=== PATIENT | female | born 1955 | race American Indian/Alaskan Native ===

== ENCOUNTER 2017-04-03 10:44 | Outpatient (CLI) | payer OTHER ==
--- NOTE | 2017-04-03 16:58 | Vascular Lab Report ---
LOWER EXTREMITY ARTERIAL DUPLEX: REASON FOR EXAM: Peripheral arterial disease. COMMENTS ON THE RIGHT: Triphasic waveforms are seen proximally. Monophasic waveforms are seen distally. No significant velocity gradients are identified. Scatter plaque identified throughout the extremity. Findings are consistent with abnormal perfusion. Findings are inconclusive with the ability to heal distal wounds. COMMENTS ON THE LEFT: Triphasic waveforms are seen proximally. Monophasic waveforms are seen distally. Significant elevation in velocity is noted at mid SFA.. Diffuse plaque noted throughout the vessel.. Findings are consistent with abnormal perfusion. Findings are inconsistent with the ability to heal distal wounds. IMPRESSION: RIGHT: Essentially normal arterial flow. LEFT:Mid SFA stenosis.
--- NOTE | 2017-04-03 17:01 | Vascular Lab Report ---
LOWER EXTREMITY ARTERIAL PHYSIOLOGIC STUDY: REASON FOR EXAM: Peripheral arterial disease. COMMENTS ON THE RIGHT: Ankle brachial index is 0.37. This value is abnormal. Toe brachial index is not obtained due to absence of the toe. Pulse volume recording at the level of the ankle is abnormal. Exercise testing was not done. COMMENTS ON THE LEFT: Ankle brachial index is 0.52. This value is abnormal. Toe brachial index is 0.3. This value is abnormal. Wound healing is unlikely. Pulse volume recording at the level of the ankle is abnormal. Exercise testing was not done. IMPRESSION: RIGHT: Severe hemodynamically significant arterial disease LEFT:Moderate to severe hemodynamically significant disease
== END 2017-04-03 10:45 | disposition home or self-care (01) ==
LOC: VAS 10:44
PROVIDERS: ATTEND Surgery Vascular Surgery
DX: I70.223 Atherosclerosis of native arteries of extremities with rest pain, bilateral legs (principal); I70.8 Atherosclerosis of other arteries; E11.9 Type 2 diabetes mellitus without complications; I10 Essential (primary) hypertension; J44.9 Chronic obstructive pulmonary disease, unspecified
CPT/HCPCS: 93922; 93925

== ENCOUNTER 2017-04-28 09:55 | Day surgery (SDC) | payer OTHER ==
[2017-04-28 11:00] LABS: Basophils % (Auto) 0.6 % (0.0-1.8); Eosinophils % (Auto) 1.7 % (0.0-4.3); Hematocrit 39.7 % (30.3-42.9); Mean Corpuscular HGB Conc 33 % (30-34); Mean Corpuscular Hemoglobin 29 pg (28-32); Mean Corpuscular Volume 88 fl (79-97); Platelet Count 299 K/mm3 (140-440); Red Blood Count 4.51 M/mm3 (3.65-5.03); White Blood Count 6.5 K/mm3 (4.5-11.0)
[2017-04-28] MEDS ORDERED: NACL 0.9% 500 ML 500 ML IV SCH (11:00)
[2017-04-28 11:12] LABS: INR 1.08 (0.87-1.13)
[2017-04-28 11:40] LABS: Anion Gap 18 mmol/L; Blood Urea Nitrogen 14 mg/dL (7-17); Calcium 8.8 mg/dL (8.4-10.2); Carbon Dioxide 24 mmol/L (22-30); Chloride 103.8 mmol/L (98-107); Glucose 159 mg/dL (65-100); Sodium 142 mmol/L (137-145)
[2017-04-28] MEDS: VERSED ONE ×2 (12:53→13:43)
[2017-04-28] MEDS: SUBLIMAZE ONE ×2 (12:53→13:43)
[2017-04-28] MEDS ORDERED: HEPARIN/NS 5000 UNIT/500ML(CATH LAB) 1,000 ML IR ONE (12:57)
[2017-04-28] MEDS ORDERED: HEPARIN 10,000 UNITS/10 ML ONE (12:57)
[2017-04-28] MEDS ORDERED: XYLOCAINE 2% INFILTRATI ONE (12:58)
[2017-04-28] MEDS ORDERED: ANCEF/STERILE WATER 2 GM/20 ML 0 GM/0 ML SYRINGE IV ONE (12:58)
[2017-04-28 15:58] VITALS: BP 147/73
--- NOTE | 2017-04-28 20:59 | Procedure Note ---
Date of procedure: 04/28/17 Pre-op diagnosis: Nonhealing right toe ulcer Post-op diagnosis: same Procedure: 1. Ultrasound-guided access of Left Common Femoral Artery 2. Abdominal Aortogram 3. Right Lower Extremity Runoff 4. Right superficial femoral and popliteal balloon angioplasty with 4 mm x 100 mm Lutonix drug-coated balloon Findings: Near complete occlusions of SFA proximally with severe diffusely diseased sfa and popliteal; popliteal completely occluded behind knee with posterior tibial and peroneal runoff Procedure Details The risks, benefits, complications, treatment options, and expected outcomes were discussed with the patient. The patient and/or family concurred with the proposed plan, giving informed consent. Patient was brought to the recyclable materials collector after IV hydration was begun and oral premedication was given. The patient was further sedated with Fentanyl and Versed and then prepped and draped in the usual manner. Under ultrasound guidance and using the modified Seldinger access technique, I gained access to the common femoral artery and this was eventually upsized to a 6 Sami sheath. Omniflush Catheter was placed in the abdominal aorta over wire and an aortogram was performed. Runoff pictures were obtained by selecting the contralateral iliac system with Bentson wire and Omniflush catheter. This showed the above. I placed a otero wire down the lower extremity and placed a 6F Destination sheath over the bifurcation then gave the patient 5000 U IV heparin. I then crossed the lesion with glidewire and glidecatheter and confirmed I was intraluminal with an angiogram. I then treated the lesion with a 4 mm drug-coated balloon at nominal pressure for 3 minutes for the first inflation, and 1 minute for the second, more distal, inflation. Because of the length of disease I used a second DCB and the first inflation was at the proximal popliteal/distal SFA which would serve as the inflow for a bypass. This was a 3 minute insufflation followed by 1 minute in the midportion of the sfa. Repeat angiogram showed a good result and no embolization. I did a sheath angiogram of the contralateral side which confirmed a good access location and I was able to place proglide closures x 1 with no bleeding afterwards. The patient tolerated the procedure well and there were no complications. Anesthesia: MAC Surgeon: TIFF MEJIA Estimated blood loss: minimal Pathology: none Condition: stable Disposition: same day
--- NOTE | 2017-04-30 07:43 | Vascular Lab Report ---
MISCELLANEOUS VESSEL IDENTIFICATION: COMMENTS ON THE SCAN: The left common femoral artery was identified and under real-time ultrasound guidance was cannulated. IMPRESSION: Successful ultrasound guided arterial cannulation.
== END 2017-04-28 16:30 | disposition home or self-care (01) ==
LOC: CATHLABREC 09:55
PROVIDERS: ATTEND Surgery Vascular Surgery
DX: I70.221 Atherosclerosis of native arteries of extremities with rest pain, right leg (principal); I87.2 Venous insufficiency (chronic) (peripheral); E11.9 Type 2 diabetes mellitus without complications; Z82.49 Family history of ischemic heart disease and other diseases of the circulatory system; Z83.3 Family history of diabetes mellitus
CPT/HCPCS: 36415; 37224; 75625; 75710; 76937; 80048; 82962; 85025; 85610; C1760; C1769; C1887; C1894; C2623; J1644; J2250; J3010; J7040; J0690; Q9967

== ENCOUNTER 2017-11-22 15:02 | Inpatient (IN) | payer OTHER ==
[2017-11-22] MEDS ORDERED: ASPIRIN PO ONE (15:12)
[2017-11-22 15:40] LABS: Basophils # (Auto) 0.1 K/mm3 (0.0-0.1); Basophils % (Auto) 0.7 % (0.0-1.8); Eosinophils % (Auto) 0.2 % (0.0-4.3); Hematocrit 36.3 % (30.3-42.9); Hemoglobin 12.3 gm/dl (10.1-14.3); Mean Corpuscular HGB Conc 34 % (30-34); Mean Corpuscular Hemoglobin 29 pg (28-32); Mean Corpuscular Volume 85 fl (79-97); Monocytes # (Auto) 0.8 K/mm3 (0.0-0.8); Monocytes % (Auto) 7.7 % (0.0-7.3); Platelet Count 372 K/mm3 (140-440); Red Blood Count 4.27 M/mm3 (3.65-5.03); Red Cell Distribution Width 13.5 % (13.2-15.2)
[2017-11-22 15:49] LABS: INR 1.01 (0.87-1.13); Partial Thromboplastin Time 25.6 Sec. (24.2-36.6)
[2017-11-22 15:59] LABS: BUN/Creatinine Ratio 11; Blood Urea Nitrogen 9 mg/dL (7-17); Calcium 9.2 mg/dL (8.4-10.2); Hemolysis Index 0
--- NOTE | 2017-11-22 16:59 | Emergency Department Report ---
HPI - General Chief Complaint: Extremity Problem,Nontraumatic Time Seen by Provider: 11/22/17 16:48 - HPI HPI: Room 4 The patient is a 62-year-old female presenting with chief complaint of bilateral lower extremity edema. The patient states for the past 4 days she has noticed swelling and tightness in both of her legs. Patient denies any preceding trauma. Patient denies chest pain or shortness of breath. Patient denies any recent flights or long car trips. The patient states she was placed on Plavix last year after her right great toe was amputated Location: Bilateral lower extremities Duration: 4 days Quality: Tightness Severity: Moderate Modifying factors: [see above] Context: [see above] Mode of transportation: [not driving] ED Past Medical Hx - Past Medical History Hx Hypertension: Yes (noncompliant with meds) Hx Diabetes: Yes Additional medical history: Left lower extremity DVT - Surgical History Past Surgical History?: Yes Additional Surgical History: Right great toe amputation - Family History Family history: no significant - Social History Smoking Status: Never Smoker Substance Use Type: None - Medications Home Medications: Home Medications Medication Instructions Recorded Confirmed Last Taken Type Clopidogrel [Plavix] 75 mg PO QDAY #30 tablet 11/27/16 04/28/17 04/28/17 09:00 Rx Losartan [Cozaar] 50 mg PO DAILY #30 tablet 11/27/16 04/28/17 04/28/17 09:00 Rx amLODIPine [Norvasc] 5 mg PO DAILY #30 tablet 11/27/16 04/28/17 04/28/17 09:00 Rx NovoLOG Mix 70/30 VIAL 5 units SC BID 04/28/17 04/28/17 04/28/17 History ED Review of Systems ROS: Stated complaint: LEG SWELLING Other details as noted in HPI Respiratory: denies: shortness of breath Cardiovascular: denies: chest pain Hematological/Lymphatic: other (bilateral lower extremity edema) Physical Exam - Physical Exam Vital Signs: Vital Signs 11/22/17 15:08 Temperature 98.6 F Pulse Rate 126 H Respiratory 16 Rate Blood Pressure 144/77 O2 Sat by Pulse 95 Oximetry Physical Exam: GENERAL: The patient is well-developed well-nourished female lying on stretcher not appearing to be in acute distress. [] HEENT: Normocephalic. Atraumatic. Extraocular motions are intact. Patient has moist mucous membranes. NECK: Supple. Trachea midline CHEST/LUNGS: Clear to auscultation. There is no respiratory distress noted. HEART/CARDIOVASCULAR: Regular. There is no tachycardia. There is no gallop rub or murmur. ABDOMEN: Abdomen is soft, nontender. Patient has normal bowel sounds. Obese. SKIN: There is no rash. There is 1+ bilateral lower extremity pitting edema. There is no diaphoresis. NEURO: The patient is awake, alert, and oriented. The patient is cooperative. The patient has normal speech MUSCULOSKELETAL: There is no evidence of acute injury. ED Course Vital Signs 11/22/17 15:08 Temperature 98.6 F Pulse Rate 126 H Respiratory 16 Rate Blood Pressure 144/77 O2 Sat by Pulse 95 Oximetry ED Medical Decision Making - Lab Data Result diagrams: 11/22/17 15:18 11/22/17 15:18 Laboratory Results - last 72 hr 11/22/17 11/22/17 11/22/17 15:18 15:18 15:18 WBC 9.9 RBC 4.27 Hgb 12.3 Hct 36.3 MCV 85 MCH 29 MCHC 34 RDW 13.5 Plt Count 372 Lymph % (Auto) 20.0 [place] % (Auto) 7.7 H Eos % (Auto) 0.2 Baso % (Auto) 0.7 Lymph # 2.0 [place] # 0.8 Eos # 0.0 Baso # 0.1 Seg Neutrophils % 71.4 H Seg Neutrophils # 7.0 PT 13.8 INR 1.01 APTT 25.6 D-Dimer 6679.02 H Sodium 130 L Potassium 3.4 L Chloride 95.4 L Carbon Dioxide 21 L Anion Gap 17 BUN 9 Creatinine 0.8 Estimated GFR > 60 BUN/Creatinine Ratio 11 Glucose 167 H Calcium 9.2 Troponin T < 0.010 - Radiology Data Radiology results: report reviewed (bilateral lower extremity Doppler), image reviewed (bilateral lower extremity Doppler) Bilateral lower extremity Doppler [facility] 1955 [facility]# [id number] 11/22/17 16:38 - Radiology Dept. Note by BRANDON URIOSTEGUI Acct Num: [id number] : 1955 Patient Age: 62 VASCULAR LAB.PRELIMINARY REPORT. BLE VENOUS DUPLEX DONE.TECHNICALLY DIFFICULT/ LIMITED DUE TO HABITUS/ SEVERE BLE EDEMA. EVIDENCE OF ACUTE DVT IN THE RT.POPLITEAL VEIN EXTENDING TO THE RT.PTV/PERONEAL VEINS AT MID CALF AND ALSO IN THE LT.CFV EXTENDING ALL THE WAY DOWN TO THE MID PTV/PERONEAL VEINS INCLUDING THE LT.GASTROCNEMIUS VEIN. INFORMED AT 1633. Initialized on 11/22/17 16:38 - END OF NOTE - Differential Diagnosis DVT Critical care attestation.: If time is entered above; I have spent that time in minutes in the direct care of this critically ill patient, excluding procedure time. ED Disposition Clinical Impression: Acute deep vein thrombosis (DVT) of both lower extremities Disposition: OP ADMIT IP TO THIS HOSP Is pt being admited?: Yes Does the pt Need Aspirin: No Condition: Fair Time of Disposition: 17:03 (hospitalist notified)
[2017-11-22] MEDS ORDERED: LOVENOX SUB-Q ONE (17:12)
[2017-11-22 18:25] LABS: Bacteria,Urine 3+ /HPF (Negative); Bilirubin,Urine NEG (Negative); Blood,Urine MOD (Negative); Color,Urine Yellow (Yellow); Mucus,Urine 3+ /HPF
[2017-11-22] MEDS ORDERED: ZOFRAN IV PRN (19:02)
[2017-11-22] MEDS ORDERED: TYLENOL PO PRN (19:02)
[2017-11-22] MEDS ORDERED: SODIUM CHLORIDE FLUSH SYRINGE 10 ML IV PRN (19:02)
[2017-11-22] MEDS ORDERED: DILAUDID IV PRN (19:03)
[2017-11-22] MEDS ORDERED: MORPHINE IV PRN (19:03)
--- NOTE | 2017-11-22 19:24 | History and Physical Report ---
History of Present Illness Date of examination: 11/22/17 Date of admission: 11/22/2017 Chief complaint: Chief complaint: Swelling of both the legs especially the cough region for 2 weeks History of present illness: [place]: 62-year-old -[place] female with history of insulin-dependent diabetes hypertension coronary artery disease comes in for increasing swelling and tightness of both the legs for the past 2 weeks more so for last 4 days. No recent travel. Patient on Plavix for unclear reasons. No chest pain or shortness of breath. Past Medical History Hx Hypertension: Yes (noncompliant with meds) Hx Diabetes: Yes Additional medical history: Left lower extremity DVT Surgical History Past Surgical History?: Yes Additional Surgical History: Right great toe amputation Family History Family history: no significant Social History Smoking Status: Never Smoker Substance Use Type: None Medications Home Medications: Home Medications Medication Instructions Recorded Confirmed Last Taken Type Clopidogrel [Plavix] 75 mg PO QDAY #30 tablet 11/27/16 04/28/17 04/28/17 09:00 Rx Losartan [Cozaar] 50 mg PO DAILY #30 tablet 11/27/16 04/28/17 04/28/17 09:00 Rx amLODIPine [Norvasc] 5 mg PO DAILY #30 tablet 11/27/16 04/28/17 04/28/17 09:00 Rx NovoLOG Mix 70/30 VIAL 5 units SC BID 04/28/17 04/28/17 04/28/17 History Review of Systems ROS: Stated complaint: LEG SWELLING Other details as noted in HPI Respiratory: denies: shortness of breath Cardiovascular: denies: chest pain Hematological/Lymphatic: other (bilateral lower extremity edema) 14 point review of systems done--otherwise negative Medications and Allergies Allergies Allergy/AdvReac Type Severity Reaction Status Date / Time No Known Allergies Allergy Verified 04/28/17 10:13 Home Medications Medication Instructions Recorded Confirmed Last Taken Type Clopidogrel [Plavix] 75 mg PO QDAY #30 tablet 11/27/16 04/28/17 04/28/17 09:00 Rx Losartan [Cozaar] 50 mg PO DAILY #30 tablet 11/27/16 04/28/17 04/28/17 09:00 Rx amLODIPine [Norvasc] 5 mg PO DAILY #30 tablet 11/27/16 04/28/17 04/28/17 09:00 Rx NovoLOG Mix 70/30 VIAL 5 units SC BID 04/28/17 04/28/17 04/28/17 History Active Meds: Active Medications Acetaminophen (Tylenol) 650 mg PO Q4H PRN PRN Reason: Pain MILD(1-3)/Fever >100.5/FIGUEROA Apixaban (Eliquis) 10 mg PO Q12HR SILKE; Protocol Enoxaparin Sodium (Lovenox) 120 mg SUB-Q Q12HR SILKE Famotidine (Pepcid) 20 mg IV BID SILKE Hydromorphone HCl (Dilaudid) 0.5 mg IV Q3H PRN PRN Reason: Pain , Severe (7-10) Sodium Chloride (Nacl 0.45% 1000 Ml) 1,000 mls @ 100 mls/hr IV DIRECT SILKE Stop: 11/23/17 10:00 Morphine Sulfate (Morphine) 2 mg IV Q4H PRN PRN Reason: Pain, Moderate (4-6) Ondansetron HCl (Zofran) 4 mg IV Q8H PRN PRN Reason: Nausea And Vomiting Oxycodone/Acetaminophen (Percocet 5/325) 1 tab PO Q6H PRN PRN Reason: Pain, Moderate (4-6) Sodium Chloride (Sodium Chloride Flush Syringe 10 Ml) 10 ml IV BID SILKE Sodium Chloride (Sodium Chloride Flush Syringe 10 Ml) 10 ml IV PRN PRN PRN Reason: LINE FLUSH Exam - Constitutional Vitals: Temp Pulse Resp BP Pulse Ox 98.6 F 109 H 15 144/73 100 11/22/17 15:08 11/22/17 18:12 11/22/17 18:12 11/22/17 18:12 11/22/17 18:12 General appearance: Present: no acute distress, well-nourished - EENT Eyes: Present: PERRL ENT: hearing intact, clear oral mucosa - Neck Neck: Present: supple, normal ROM - Respiratory Respiratory effort: normal Respiratory: bilateral: CTA - Cardiovascular Heart rate: 70 Rhythm: regular Heart Sounds: Present: S1 & S2. Absent: rub, click - Extremities Extremities: no ischemia, pulses intact, pulses symmetrical, abnormal (both legs are swollen from the mid thigh to ankle. Swelling and tightness present.) Extremity abnormal: other (swelling of both the legs on the meantime to her cough calf region and ankle) Peripheral Pulses: within normal limits - Abdominal General gastrointestinal: Present: soft, non-tender, non-distended, normal bowel sounds Female genitourinary: Present: normal - Integumentary Integumentary: Present: clear, warm, dry - Musculoskeletal Musculoskeletal: gait normal, strength equal bilaterally - Psychiatric Psychiatric: appropriate mood/affect, intact judgment & insight - Neurologic Neurologic: CNII-XII intact, moves all extremities - Allied Health Allied health notes reviewed: nursing, case management Results - Labs CBC & Chem 7: 11/22/17 15:18 11/22/17 15:18 Labs: Laboratory Last Values WBC 9.9 K/mm3 (4.5-11.0) 11/22/17 15:18 RBC 4.27 M/mm3 (3.65-5.03) 11/22/17 15:18 Hgb 12.3 gm/dl (10.1-14.3) 11/22/17 15:18 Hct 36.3 % (30.3-42.9) 11/22/17 15:18 MCV 85 fl (79-97) 11/22/17 15:18 MCH 29 pg (28-32) 11/22/17 15:18 MCHC 34 % (30-34) 11/22/17 15:18 RDW 13.5 % (13.2-15.2) 11/22/17 15:18 Plt Count 372 K/mm3 (140-440) 11/22/17 15:18 Lymph % (Auto) 20.0 % (13.4-35.0) 11/22/17 15:18 [place] % (Auto) 7.7 % (0.0-7.3) H 11/22/17 15:18 Eos % (Auto) 0.2 % (0.0-4.3) 11/22/17 15:18 Baso % (Auto) 0.7 % (0.0-1.8) 11/22/17 15:18 Lymph # 2.0 K/mm3 (1.2-5.4) 11/22/17 15:18 [place] # 0.8 K/mm3 (0.0-0.8) 11/22/17 15:18 Eos # 0.0 K/mm3 (0.0-0.4) 11/22/17 15:18 Baso # 0.1 K/mm3 (0.0-0.1) 11/22/17 15:18 Seg Neutrophils % 71.4 % (40.0-70.0) H 11/22/17 15:18 Seg Neutrophils # 7.0 K/mm3 (1.8-7.7) 11/22/17 15:18 PT 13.8 Sec. (12.2-14.9) 11/22/17 15:18 INR 1.01 (0.87-1.13) 11/22/17 15:18 APTT 25.6 Sec. (24.2-36.6) 11/22/17 15:18 D-Dimer 6679.02 ng/mlDDU (0-234) H 11/22/17 15:18 Sodium 130 mmol/L (137-145) L 11/22/17 15:18 Potassium 3.4 mmol/L (3.6-5.0) L 11/22/17 15:18 Chloride 95.4 mmol/L (98-107) L 11/22/17 15:18 Carbon Dioxide 21 mmol/L (22-30) L 11/22/17 15:18 Anion Gap 17 mmol/L 11/22/17 15:18 BUN 9 mg/dL (7-17) 11/22/17 15:18 Creatinine 0.8 mg/dL (0.7-1.2) 11/22/17 15:18 Estimated GFR > 60 ml/min 11/22/17 15:18 BUN/Creatinine Ratio 11 % 11/22/17 15:18 Glucose 167 mg/dL (65-100) H 11/22/17 15:18 Calcium 9.2 mg/dL (8.4-10.2) 11/22/17 15:18 Troponin T < 0.010 ng/mL (0.00-0.029) 11/22/17 18:06 Urine Color Yellow (Yellow) 11/22/17 17:55 Urine Turbidity Clear (Clear) 11/22/17 17:55 Urine pH 5.0 (5.0-7.0) 11/22/17 17:55 Ur Specific [place] 1.017 (1.003-1.030) 11/22/17 17:55 Urine Protein 30 mg/dl mg/dL (Negative) 11/22/17 17:55 Urine Glucose (UA) Neg mg/dL (Negative) 11/22/17 17:55 Urine Ketones Tr mg/dL (Negative) 11/22/17 17:55 Urine Blood Mod (Negative) 11/22/17 17:55 Urine Nitrite Neg (Negative) 11/22/17 17:55 Urine Bilirubin Neg (Negative) 11/22/17 17:55 Urine Urobilinogen 2.0 mg/dL (<2.0) 11/22/17 17:55 Ur Leukocyte Esterase Lg (Negative) 11/22/17 17:55 Urine WBC (Auto) 24.0 /HPF (0.0-6.0) H 11/22/17 17:55 Urine RBC (Auto) 6.0 /HPF (0.0-6.0) 11/22/17 17:55 U Epithel Cells (Auto) 4.0 /HPF (0-13.0) 11/22/17 17:55 Urine Bacteria (Auto) 3+ /HPF (Negative) 11/22/17 17:55 Urine Mucus 3+ /HPF 11/22/17 17:55 Urine Yeast (Budding) 1+ /HPF 11/22/17 17:55 Short CBC 11/22/17 Range/Units 15:18 WBC 9.9 (4.5-11.0) K/mm3 Hgb 12.3 (10.1-14.3) gm/dl Hct 36.3 (30.3-42.9) % Plt Count 372 (140-440) K/mm3 BMP 11/22/17 15:18 Sodium 130 L Potassium 3.4 L Chloride 95.4 L Carbon Dioxide 21 L BUN 9 Creatinine 0.8 Glucose 167 H Calcium 9.2 Cardiac Enzymes 11/22/17 11/22/17 Range/Units 15:18 18:06 Troponin T < 0.010 < 0.010 (0.00-0.029) ng/mL Urine 11/22/17 Range/Units 17:55 Urine Color Yellow (Yellow) Urine pH 5.0 (5.0-7.0) Ur Specific [place] 1.017 (1.003-1.030) Urine Protein 30 mg/dl (Negative) mg/dL Urine Glucose (UA) Neg (Negative) mg/dL - Imaging and Cardiology Imaging and Cardiology: Bilateral duplex scan-venous As per ER physician bilateral lower extremity deep venous clots. Official report not available Later VASCULAR LAB.PRELIMINARY REPORT. BLE VENOUS DUPLEX DONE.TECHNICALLY DIFFICULT/ LIMITED DUE TO HABITUS/ SEVERE BLE EDEMA. EVIDENCE OF ACUTE DVT IN THE RT.POPLITEAL VEIN EXTENDING TO THE RT.PTV/PERONEAL VEINS AT MID CALF AND ALSO IN THE LT.CFV EXTENDING ALL THE WAY DOWN TO THE MID PTV/PERONEAL VEINS INCLUDING THE LT.GASTROCNEMIUS VEIN. INFORMED AT 1633. Initialized on 11/22/17 16:38 - END OF NOTE Assessment and Plan Advance Directives: Yes (full code) VTE prophylaxis?: Chemical Plan of care discussed with patient/family: Yes - Patient Problems (1) Acute deep vein thrombosis (DVT) of both lower extremities Current Visit: Yes Status: Acute Qualifiers: Affected thrombotic vein of extremity: popliteal Qualified Code(s): I82.433 - Acute embolism and thrombosis of popliteal vein, bilateral Plan to address problem: Official report not available. Patient initiated on Lovenox 120 mg every 12.hrs.Eliquis to be started on Friday 10 mg every 12 hrs. I would rather prefer Coumadin because compliance can be monitored but will defer to the hospitalist team regarding Coumadin versus Eliquis. (2) Insulin dependent diabetes mellitus Current Visit: Yes Status: Acute Plan to address problem: Continue home insulin and coverage. Also check hemoglobin A1c and adjust the dosage accordingly (3) Hypokalemia Current Visit: No Status: Acute Plan to address problem: supplemented (4) Hypertension Current Visit: Yes Status: Chronic Qualifiers: Hypertension type: essential hypertension Qualified Code(s): I10 - Essential (primary) hypertension Plan to address problem: Continue Losartan and adjust the dosage if necessary (5) Atherosclerosis of [place] arteries of the extremities with gangrene Current Visit: No Status: Chronic Qualifiers: Peripheral atherosclerosis location: lower extremity Laterality: right Qualified Code(s): I70.261 - Atherosclerosis of [place] arteries of extremities with gangrene, right leg Plan to address problem: This was in the past and had an amputation of the right great toe. Patient was on Plavix which was discontinued because the patient is on Lovenox and going to be on Eliquis. (6) DVT prophylaxis Current Visit: Yes Status: Acute Plan to address problem: Patient on Lovenox
[2017-11-22] MEDS ORDERED: NACL 0.45% 1000 ML 1,000 ML IV SCH (20:00)
[2017-11-22] MEDS ORDERED: HumaLOG SUB-Q ONE ×3 (20:00→20:44)
[2017-11-22] MEDS ORDERED: LOVENOX SUB-Q SCH (20:00)
[2017-11-22] MEDS ORDERED: DILAUDID ONE (20:44)
[2017-11-22] MEDS ORDERED: NORVASC ONE (20:47)
[2017-11-22] MEDS ORDERED: COZAAR ONE (20:47)
[2017-11-22] MEDS: COZAAR PO SCH (21:01)
[2017-11-22] MEDS: NORVASC PO SCH (21:02)
[2017-11-22] MEDS ORDERED: PEPCID IV SCH (22:00)
[2017-11-22] MEDS: SODIUM CHLORIDE FLUSH SYRINGE 10 ML IV SCH (22:45)
[2017-11-22] MEDS: LOVENOX SUB-Q SCH (22:47)
[2017-11-23] MEDS: PERCOCET 5/325 PO PRN ×2 (06:15→16:16)
[2017-11-23] MEDS: COZAAR PO SCH (10:27)
[2017-11-23] MEDS: NORVASC PO SCH (10:28)
[2017-11-23] MEDS: PEPCID PO SCH ×2 (10:28→21:36)
[2017-11-23] MEDS: LOVENOX SUB-Q SCH ×2 (10:29→22:00)
[2017-11-23] MEDS: SODIUM CHLORIDE FLUSH SYRINGE 10 ML IV SCH ×2 (10:29→22:00)
[2017-11-23 11:17] LABS: Basophils # (Auto) 0.1 K/mm3 (0.0-0.1); Basophils % (Auto) 0.8 % (0.0-1.8); Eosinophils # (Auto) 0.1 K/mm3 (0.0-0.4); Eosinophils % (Auto) 1.6 % (0.0-4.3); Lymphocytes # (Auto) 1.9 K/mm3 (1.2-5.4); Lymphocytes % (Auto) 21.4 % (13.4-35.0); Mean Corpuscular HGB Conc 33 % (30-34); Mean Corpuscular Hemoglobin 29 pg (28-32); Mean Corpuscular Volume 86 fl (79-97); Monocytes # (Auto) 0.7 K/mm3 (0.0-0.8); Platelet Count 373 K/mm3 (140-440); Red Blood Count 4.16 M/mm3 (3.65-5.03); Red Cell Distribution Width 13.8 % (13.2-15.2)
[2017-11-23 11:36] LABS: Alanine Aminotransferase 12 units/L (7-56); Albumin 3.7 g/dL (3.9-5); BUN/Creatinine Ratio 9; Blood Urea Nitrogen 6 mg/dL (7-17); Calcium 8.8 mg/dL (8.4-10.2); Hemolysis Index 0
--- NOTE | 2017-11-23 17:40 | Progress Note ---
Assessment and Plan Assessment and plan: 62F with previous hx of LLE dvt in the past, completed blood thinners years ago. now pw with 5 days of Bilateral LE edema VL doppler of lower extremity; EVIDENCE OF ACUTE DVT IN THE RT.POPLITEAL VEIN EXTENDING TO THE RT.PTV/PERONEAL VEINS AT MID CALF AND ALSO IN THE LT.CFV EXTENDING ALL THE WAY DOWN TO THE MID PTV/PERONEAL VEINS INCLUDING THE LT.GASTROCNEMIUS VEIN. 1) Acute deep vein thrombosis (DVT) of both lower extremities on lovenox, transition to eliquis, obtain cta ches to rule out pe (2) Insulin dependent diabetes mellitus continue insulins (3) Hypokalemia supplemented (4) Hypertension Continue Losartan and adjust the dosage if necessary (5) PAD hx of previous toe amputation obtain arterial ultrasound of LE, will call [facility] sx if there are positive findings (6) DVT prophylaxis Patient on Lovenox History Interval history: still c/o bilateral LE edema, and pain denies cp, sob or palpitations no fevers, no chills, no vomiting Hospitalist Physical - Constitutional Vitals: Temp Pulse Resp BP Pulse Ox 98.2 F 98 H 18 130/70 99 11/23/17 15:10 11/23/17 15:10 11/23/17 17:16 11/23/17 15:10 11/23/17 15:10 General appearance: Present: no acute distress, well-nourished - EENT Eyes: Present: PERRL ENT: hearing intact - Neck Neck: Present: supple - Respiratory Respiratory effort: normal Respiratory: bilateral: CTA - Cardiovascular Rhythm: regular Heart Sounds: Present: S1 & S2 - Extremities Extremities: no ischemia Extremity abnormal: edema (bilateral) - Abdominal General gastrointestinal: soft, non-tender, non-distended - Integumentary Integumentary: Present: clear, warm, dry - Psychiatric Psychiatric: appropriate mood/affect, intact judgment & insight - Neurologic Neurologic: CNII-XII intact, moves all extremities Results - Labs CBC & Chem 7: 11/23/17 10:39 11/23/17 10:39 Labs: Laboratory Last Values WBC 8.9 K/mm3 (4.5-11.0) 11/23/17 10:39 RBC 4.16 M/mm3 (3.65-5.03) 11/23/17 10:39 Hgb 12.0 gm/dl (10.1-14.3) 11/23/17 10:39 Hct 36.0 % (30.3-42.9) 11/23/17 10:39 MCV 86 fl (79-97) 11/23/17 10:39 MCH 29 pg (28-32) 11/23/17 10:39 MCHC 33 % (30-34) 11/23/17 10:39 RDW 13.8 % (13.2-15.2) 11/23/17 10:39 Plt Count 373 K/mm3 (140-440) 11/23/17 10:39 Lymph % (Auto) 21.4 % (13.4-35.0) 11/23/17 10:39 [place] % (Auto) 8.0 % (0.0-7.3) H 11/23/17 10:39 Eos % (Auto) 1.6 % (0.0-4.3) 11/23/17 10:39 Baso % (Auto) 0.8 % (0.0-1.8) 11/23/17 10:39 Lymph # 1.9 K/mm3 (1.2-5.4) 11/23/17 10:39 [place] # 0.7 K/mm3 (0.0-0.8) 11/23/17 10:39 Eos # 0.1 K/mm3 (0.0-0.4) 11/23/17 10:39 Baso # 0.1 K/mm3 (0.0-0.1) 11/23/17 10:39 Seg Neutrophils % 68.2 % (40.0-70.0) 11/23/17 10:39 Seg Neutrophils # 6.1 K/mm3 (1.8-7.7) 11/23/17 10:39 PT 13.8 Sec. (12.2-14.9) 11/22/17 15:18 INR 1.01 (0.87-1.13) 11/22/17 15:18 APTT 25.6 Sec. (24.2-36.6) 11/22/17 15:18 D-Dimer 6679.02 ng/mlDDU (0-234) H 11/22/17 15:18 Sodium 138 mmol/L (137-145) D 11/23/17 10:39 Potassium 3.5 mmol/L (3.6-5.0) L 11/23/17 10:39 Chloride 99.5 mmol/L (98-107) 11/23/17 10:39 Carbon Dioxide 25 mmol/L (22-30) 11/23/17 10:39 Anion Gap 17 mmol/L 11/23/17 10:39 BUN 6 mg/dL (7-17) L 11/23/17 10:39 Creatinine 0.7 mg/dL (0.7-1.2) 11/23/17 10:39 Estimated GFR > 60 ml/min 11/23/17 10:39 BUN/Creatinine Ratio 9 % 11/23/17 10:39 Glucose 217 mg/dL (65-100) H 11/23/17 10:39 POC Glucose 150 (70-105) H 11/23/17 16:16 Hemoglobin A1c 6.9 % (4-6) H 11/22/17 15:18 Calcium 8.8 mg/dL (8.4-10.2) 11/23/17 10:39 Total Bilirubin 0.40 mg/dL (0.1-1.2) 11/23/17 10:39 AST 16 units/L (5-40) 11/23/17 10:39 ALT 12 units/L (7-56) 11/23/17 10:39 Alkaline Phosphatase 68 units/L (35-129) 11/23/17 10:39 Troponin T < 0.010 ng/mL (0.00-0.029) 11/22/17 20:49 Total Protein 7.7 g/dL (6.3-8.2) 11/23/17 10:39 Albumin 3.7 g/dL (3.9-5) L 11/23/17 10:39 Albumin/Globulin Ratio 0.9 % 11/23/17 10:39 Urine Color Yellow (Yellow) 11/22/17 17:55 Urine Turbidity Clear (Clear) 11/22/17 17:55 Urine pH 5.0 (5.0-7.0) 11/22/17 17:55 Ur Specific [place] 1.017 (1.003-1.030) 11/22/17 17:55 Urine Protein 30 mg/dl mg/dL (Negative) 04/21/18 17:55 Urine Glucose (UA) Neg mg/dL (Negative) 11/22/17 17:55 Urine Ketones Tr mg/dL (Negative) 11/22/17 17:55 Urine Blood Mod (Negative) 11/22/17 17:55 Urine Nitrite Neg (Negative) 11/22/17 17:55 Urine Bilirubin Neg (Negative) 11/22/17 17:55 Urine Urobilinogen 2.0 mg/dL (<2.0) 11/22/17 17:55 Ur Leukocyte Esterase Lg (Negative) 11/22/17 17:55 Urine WBC (Auto) 24.0 /HPF (0.0-6.0) H 11/22/17 17:55 Urine RBC (Auto) 6.0 /HPF (0.0-6.0) 11/22/17 17:55 U Epithel Cells (Auto) 4.0 /HPF (0-13.0) 11/22/17 17:55 Urine Bacteria (Auto) 3+ /HPF (Negative) 11/22/17 17:55 Urine Mucus 3+ /HPF 11/22/17 17:55 Urine Yeast (Budding) 1+ /HPF 11/22/17 17:55
--- NOTE | 2017-11-23 19:55 | Cat Scan Report ---
FINAL REPORT EXAM: CT ANGIO CHEST HISTORY: dvts, concern for PE TECHNIQUE: CT chest CT angiogram with intravenous contrast and multiplanar reconstructions PRIORS: None. FINDINGS: Findings are positive for acute pulmonary emboli There is filling defect within left lower lobe segmental and subsegmental branches which are partially occluding. No large central saddle embolus identified. No evidence of mediastinal pathologic lymph node enlargement Heart and great vessels are unremarkable. The aorta is normal in caliber. No focal pulmonary infiltrate identified. No pleural fluid collection seen. No acute pulmonary abnormality noted. Visualized portion of the upper abdomen demonstrates no acute change. IMPRESSION: Findings are positive for acute pulmonary embolus. Emboli present within left lower lobe segmental and subsegmental branches. No large central saddle embolus detected.
[2017-11-24] MEDS: NORVASC PO SCH (09:22)
[2017-11-24] MEDS: COZAAR PO SCH (09:22)
[2017-11-24] MEDS: PEPCID PO SCH ×2 (09:22→22:31)
[2017-11-24] MEDS: ELIQUIS PO SCH ×2 (09:24→22:30)
[2017-11-24] MEDS: SODIUM CHLORIDE FLUSH SYRINGE 10 ML IV SCH ×2 (09:25→22:31)
--- NOTE | 2017-11-24 15:02 | Progress Note ---
Assessment and Plan - Patient Problems (1) Acute deep vein thrombosis (DVT) of both lower extremities Current Visit: Yes Status: Acute Qualifiers: Affected thrombotic vein of extremity: popliteal Qualified Code(s): I82.433 - Acute embolism and thrombosis of popliteal vein, bilateral Plan to address problem: Official report not available. Patient initiated on Lovenox 120 mg every 12.hrs.Eliquis to be started on Friday 10 mg every 12 hrs. I would rather prefer Coumadin because compliance can be monitored but will defer to the hospitalist team regarding Coumadin versus Eliquis. (2) Insulin dependent diabetes mellitus Current Visit: Yes Status: Acute Plan to address problem: Continue home insulin and coverage. Also check hemoglobin A1c and adjust the dosage accordingly (3) Hypokalemia Current Visit: No Status: Acute Plan to address problem: supplemented (4) Hypertension Current Visit: Yes Status: Chronic Qualifiers: Hypertension type: essential hypertension Qualified Code(s): I10 - Essential (primary) hypertension Plan to address problem: Continue Losartan and adjust the dosage if necessary (5) Atherosclerosis of [place] arteries of the extremities with gangrene Current Visit: No Status: Chronic Qualifiers: Peripheral atherosclerosis location: lower extremity Laterality: right Qualified Code(s): I70.261 - Atherosclerosis of [place] arteries of extremities with gangrene, right leg Plan to address problem: This was in the past and had an amputation of the right great toe. Patient was on Plavix which was discontinued because the patient is on Lovenox and going to be on Eliquis. (6) DVT prophylaxis Current Visit: Yes Status: Acute Plan to address problem: Patient on Lovenox Subjective Date of service: 11/24/17 Objective - Constitutional Vitals: Vital Signs - 12hr 11/24/17 11/24/17 07:52 09:22 Temperature 98.5 F Pulse Rate 72 72 Respiratory 16 Rate Blood Pressure 122/56 122/56 O2 Sat by Pulse 100 Oximetry General appearance: Present: no acute distress, well-nourished - EENT Eyes: PERRL, EOM intact ENT: hearing intact, clear oral mucosa Ears: bilateral: normal - Neck Neck: supple, normal ROM - Respiratory Respiratory effort: normal Respiratory: bilateral: CTA - Breasts Breasts: normal - Cardiovascular Rhythm: regular Heart Sounds: Present: S1 & S2. Absent: gallop, rub Extremities: pulses intact, No edema, normal color, Full ROM - Gastrointestinal General gastrointestinal: Present: soft, non-tender, non-distended, normal bowel sounds - Genitourinary Female genitourinary: normal - Integumentary Integumentary: clear, warm, dry - Musculoskeletal Musculoskeletal: 1, strength equal bilaterally - Neurologic Neurologic: moves all extremities - Psychiatric Psychiatric: memory intact, appropriate mood/affect, intact judgment & insight - Labs CBC & Chem 7: 11/23/17 10:39 11/23/17 10:39 Labs: Abnormal lab results 11/23/17 11/23/17 11/24/17 Range/Units 16:16 22:39 06:29 POC Glucose 150 H 201 H 176 H (70-105) 11/24/17 Range/Units 11:55 POC Glucose 164 H (70-105)
[2017-11-24] MEDS: PERCOCET 5/325 PO PRN (22:50)
[2017-11-25] MEDS: PERCOCET 5/325 PO PRN (06:33)
[2017-11-25] MEDS: PEPCID PO SCH (09:58)
[2017-11-25] MEDS: ELIQUIS PO SCH (09:58)
[2017-11-25] MEDS: NORVASC PO SCH (10:00)
[2017-11-25] MEDS: SODIUM CHLORIDE FLUSH SYRINGE 10 ML IV SCH (10:00)
[2017-11-25] MEDS: COZAAR PO SCH (10:33)
--- NOTE | 2017-11-25 15:18 | Discharge Summary ---
Providers - Providers Date of Admission: 11/22/17 19:35 Date of discharge: 11/25/17 Attending physician: ADA DEWITT Primary care physician: KURTIS LUCAS Hospitalization Condition: Fair Disposition: [id number] STILL A PATIENT - Discharge Diagnoses (1) Acute deep vein thrombosis (DVT) of both lower extremities Status: Acute Qualifiers: Affected thrombotic vein of extremity: popliteal Qualified Code(s): I82.433 - Acute embolism and thrombosis of popliteal vein, bilateral (2) Insulin dependent diabetes mellitus Status: Acute (3) Hypokalemia Status: Acute (4) Hypertension Status: Chronic Qualifiers: Hypertension type: essential hypertension Qualified Code(s): I10 - Essential (primary) hypertension (5) Atherosclerosis of [place] arteries of the extremities with gangrene Status: Chronic Qualifiers: Peripheral atherosclerosis location: lower extremity Laterality: right Qualified Code(s): I70.261 - Atherosclerosis of [place] arteries of extremities with gangrene, right leg (6) DVT prophylaxis Status: Acute Exam - Constitutional Vitals: Temp Pulse Resp BP Pulse Ox 98.2 F 98 H 20 163/69 100 11/25/17 07:15 11/25/17 10:33 11/25/17 08:38 11/25/17 10:33 11/25/17 07:15 Plan Follow up with: KURTIS LUCAS MD [Primary Care Provider] - 7 Days
[2017-11-25 16:50] VITALS: BP 146/73
--- NOTE | 2017-11-26 12:33 | Vascular Lab Report ---
LOWER EXTREMITY VENOUS DUPLEX: REASON FOR EXAM: Pain and swelling of the lower extremities. COMMENTS ON THE RIGHT: Acute deep venous thrombosis is seen in the right popliteal vein extending into the proximal tibial veins. The remaining veins visualized are freely compressible without evidence of internal echogenicity. Spontaneous and phasic flow is present proximally. COMMENTS ON THE LEFT: Acute deep venous thrombosis is seen extending from the common femoral vein to the tibial veins. The popliteal vein and deep femoral vein are involved as well. There is thrombus noted in the gastrocnemius vein.. The remaining veins visualized are freely compressible without evidence of internal echogenicity. Spontaneous and phasic flow is diminished proximally. IMPRESSION: Extensive acute deep venous thrombosis of the left lower extremity. Popliteal and tibial veins deep venous thrombosis of the right lower extremity.
--- NOTE | 2017-11-26 12:36 | Vascular Lab Report ---
LOWER EXTREMITY ARTERIAL DUPLEX: REASON FOR EXAM: Peripheral arterial disease. COMMENTS ON THE RIGHT: Triphasic waveforms are seen proximally. Monophasic waveforms are seen distally. Evidence of superficial femoral artery stenosis is identified. Scattered plaque is seen throughout. Findings are consistent with abnormal perfusion. Findings are not consistent with the ability to heal distal wounds. COMMENTS ON THE LEFT: Triphasic waveforms are seen proximally. Monophasic waveforms are seen distally. Evidence of superficial femoral artery occlusive disease is identified. Scattered plaque is seen throughout. Findings are consistent with abnormal perfusion. Findings are not consistent with the ability to heal distal wounds. IMPRESSION: RIGHT: Superficial femoral artery stenosis or occlusion. Flow is inadequate distally. Recommend further evaluation. LEFT:Superficial femoral artery stenosis or occlusion. Flow is inadequate distally. Recommend further evaluation.
[2017-12-01] MEDS ORDERED: ELIQUIS PO SCH (10:00)
== END 2017-11-25 17:45 | disposition home or self-care (01) | DRG 300 ==
LOC: ED 15:02 → 3A 19:35
PROVIDERS: ADMIT Internal Medicine; ATTEND Internal Medicine
DX: I82.433 Acute embolism and thrombosis of popliteal vein, bilateral (principal); I70.261 Atherosclerosis of native arteries of extremities with gangrene, right leg; I82.443 Acute embolism and thrombosis of tibial vein, bilateral; I10 Essential (primary) hypertension; E11.9 Type 2 diabetes mellitus without complications; I25.10 Atherosclerotic heart disease of native coronary artery without angina pectoris; E87.6 Hypokalemia
CPT/HCPCS: 36415; 71275; 80048; 80053; 81001; 82962; 83036; 84484; 85025; 85379; 85610; 85730; 93005; 93010; 93925; 93970; 96372; 96374; J1170; J1650; J1815; Q9967

== ENCOUNTER 2018-04-21 12:07 | Outpatient (CLI) | payer OTHER ==
[2018-04-21 12:55] LABS: Basophils # (Auto) 0.1 K/mm3 (0.0-0.1); Basophils % (Auto) 1.1 % (0.0-1.8); Eosinophils # (Auto) 0.1 K/mm3 (0.0-0.4); Eosinophils % (Auto) 2.2 % (0.0-4.3); Hematocrit 35.5 % (30.3-42.9); Hemoglobin 12.3 gm/dl (10.1-14.3); Lymphocytes # (Auto) 2.3 K/mm3 (1.2-5.4); Lymphocytes % (Auto) 35.3 % (13.4-35.0); Mean Corpuscular HGB Conc 35 % (30-34); Mean Corpuscular Hemoglobin 30 pg (28-32); Mean Corpuscular Volume 85 fl (79-97); Monocytes # (Auto) 0.3 K/mm3 (0.0-0.8); Monocytes % (Auto) 5.3 % (0.0-7.3); Platelet Count 293 K/mm3 (140-440); Red Blood Count 4.16 M/mm3 (3.65-5.03); Red Cell Distribution Width 14.4 % (13.2-15.2)
[2018-04-21 13:06] LABS: Creatinine,Urine 155.7 mg/dL (0.1-20.0); Protein/Creatinine Ratio,Urine 0.19
[2018-04-21 13:09] LABS: Bacteria,Urine 1+ /HPF (Negative); Bilirubin,Urine NEG (Negative); Blood,Urine NEG (Negative); Color,Urine Yellow (Yellow); Mucus,Urine FEW /HPF; Protein,Urine <15 mg/dL mg/dL (Negative); Urobilinogen,Urine < 2.0 mg/dL (<2.0)
[2018-04-21 13:10] LABS: Hyaline Casts,Urine 1 /LPF
[2018-04-21 13:21] LABS: BUN/Creatinine Ratio 16; Blood Urea Nitrogen 13 mg/dL (7-17); Calcium 9.1 mg/dL (8.4-10.2); Hemolysis Index 21
== END 2018-04-21 12:08 | disposition home or self-care (01) ==
LOC: LAB 12:07
PROVIDERS: ATTEND Internal Medicine Nephrology
DX: E11.22 Type 2 diabetes mellitus with diabetic chronic kidney disease (principal); I12.9 Hypertensive chronic kidney disease with stage 1 through stage 4 chronic kidney disease, or unspecified chronic kidney disease; N18.3 Chronic kidney disease, stage 3 (moderate); N25.81 Secondary hyperparathyroidism of renal origin; D63.1 Anemia in chronic kidney disease; E11.69 Type 2 diabetes mellitus with other specified complication; E66.9 Obesity, unspecified
CPT/HCPCS: 36415; 80048; 81001; 82306; 82570; 83970; 84100; 84156; 85025; 89050